=== PATIENT | male | born 1965 | race African-American/Black ===

== ENCOUNTER 2017-12-15 14:26 | Emergency (ER) | payer SELFPAY ==
[~2017-12-15] VITALS: Ht 180.3 cm; Wt 136.5 kg
[~2017-12-15 14:26] MED LIST: Z.0.NO CURRENT MEDS
[2017-12-15 14:34] VITALS: BP 148/75; PULSE 107; RESP 22; TEMP 98.6; O2SAT 98
[2017-12-15] MEDS ORDERED: SODIUM CHLOR 0.9% 1000 ML INJ 1,000 ML IV SCH (16:34)
[2017-12-15 16:41] VITALS: PULSE 102; RESP 18; O2SAT 97
[2017-12-15] MEDS ORDERED: MORPHINE SULFATE 4 MG/ML INJ IV PUSH ONE (16:45)
[2017-12-15] MEDS ORDERED: TETANUS/DIPHTHERIA TOXOID ADULT 0.5 ML VIAL IM ONE (16:45)
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
[2017-12-15 16:51] VITALS: BP 140/80; PULSE 102; RESP 18; O2SAT 98
[2017-12-15 17:14] LABS: AUTOMATED NEUTROPHIL # 5.6 TH/MM3 (1.8-7.7); BASOPHIL % 0.6 % (0.0-2.0); EOSINOPHIL # 0.3 TH/MM3 (0-0.4); EOSINOPHIL % 3.4 % (0.0-4.0); HEMATOCRIT 34.9 % (39.0-51.0); HEMOGLOBIN 11.4 GM/DL (13.0-17.0); LYMPH % 16.4 % (9.0-44.0); LYMPHOCYTE # 1.4 TH/MM3 (1.0-4.8); MEAN CELL VOLUME 84.6 FL (80.0-100.0); MEAN CORPUSCULAR HEMOGLOBIN 27.7 PG (27.0-34.0); MEAN CORPUSCULAR HGB CONC 32.7 % (32.0-36.0); MEAN PLATELET VOLUME 8.4 FL (7.0-11.0); MONO % 13.5 % (0.0-8.0); MONOCYTE # 1.1 TH/MM3 (0-0.9); NEUT % 66.1 % (16.0-70.0); PLATELET COUNT 245 TH/MM3 (150-450); RED BLOOD COUNT 4.12 MIL/MM3 (4.50-5.90); RED CELL DISTRIBUTION WIDTH 16.2 % (11.6-17.2); WHITE BLOOD COUNT 8.4 TH/MM3 (4.0-11.0)
[2017-12-15 17:21] LABS: PROTHROMBIN TIME - PATIENT 10.2 SEC (9.8-11.6)
[2017-12-15] MEDS ORDERED: CLINDAMYCIN INJ 900 MG in SODIUM CHLORIDE 0.9% INJ 100 ML IV ONE (17:30)
[2017-12-15 17:31] LABS: ALBUMIN 2.8 GM/DL (3.4-5.0); AST (GOT) 56 U/L (15-37); BICARBONATE 25.5 MEQ/L (21.0-32.0); BLOOD UREA NITROGEN 14 MG/DL (7-18); CALCIUM 8.6 MG/DL (8.5-10.1); CHLORIDE 105 MEQ/L (98-107); GLOMERULAR FILTRATION RATE 60 ML/MIN (>89); GLUCOSE,RANDOM 98 MG/DL (74-106); SODIUM (NA) 140 MEQ/L (136-145)
[2017-12-15 17:33] LABS: ALT (GPT) 61 U/L (12-78)
[2017-12-15 17:34] LABS: ALKALINE PHOSPHATASE 78 U/L (45-117); TOTAL BILIRUBIN ADULT 0.2 MG/DL (0.2-1.0); TOTAL PROTEIN 7.6 GM/DL (6.4-8.2)
[2017-12-15] MEDS ORDERED: CLINDAMYCIN 900 MG/NS PREMIX 50 ML IV ONE (17:45)
--- NOTE | 2017-12-15 18:06 | RADRPT ---
EXAM DATE/TIME: 12/15/2017 17:31 CORRECTION Corrected on: December 15, 2017; [place] COMPARISON: No previous studies available for comparison. INDICATIONS : Bilateral leg pain. MEDICAL HISTORY : Hypertension. Glasses. Substance use. SURGICAL HISTORY : Appendectomy. ENCOUNTER: Initial ACUITY: 1 day PAIN SCORE: 2/10 LOCATION: Bilateral legs. TECHNIQUE: Venous ultrasound of the left and right leg was performed from the inguinal ligament to the proximal calf. Real-time, color Doppler and spectral tracing, compression and augmentation techniques were us ed. FINDINGS: RIGHT LEG: There is normal compressibility of the deep venous system from the inguinal region to the proximal ca lf. No echogenic clot is seen in the lumen of the common femoral, femoral, popliteal, and posterior tibial veins. There is a normal response of the venous system to proximal and distal augmentation an d respiration. LEFT LEG: There is normal compressibility of the deep venous system from the inguinal region to the proximal ca lf. No echogenic clot is seen in the lumen of the common femoral, femoral, popliteal, and posterior tibial veins. There is a normal response of the venous system to proximal and distal augmentation an d respiration. CONCLUSION: Negative for deep venous thrombosis. Benito Lares MD FACR on December 15, 2017 at 18:03 Board Certified Radiologist. This report was verified electronically. Benito Lares MD FACR on December 15, 2017 at 18:10 Board Certified Radiologist. This report was verified electronically.
[2017-12-15] MEDS ORDERED: CLIN150C14 PO (18:14)
[2017-12-15] MEDS ORDERED: IBUP-232 PO (18:14)
--- NOTE | 2017-12-15 19:22 | PD ---
Physical Exam Date Seen by Provider: Dec 15, 2017 Time Seen by Provider: 18:30 Narrative I, Dr. Serrano patient seen and evaluated with PA, please see PA notes for further details. i, have reviewed the advance practice practitioner's documentation and am in agreement, met with the patient face to face, made the diagnosis, and the medical decision making was done by me. *My assessment and Findings: He is here with bilateral leg pain and swelling, cellulitis versus DVT. He denies any fevers or other issues. He has tenderness on palpation of both legs, notable erythema. The rest of exam was fairly unremarkable. Laboratory Tests Test 12/15/17 16:10 12/15/17 16:50 Red Blood Count 4.12 MIL/MM3 (4.50-5.90) Hemoglobin 11.4 GM/DL (13.0-17.0) Hematocrit 34.9 % (39.0-51.0) Monocytes (%) (Auto) 13.5 % (0.0-8.0) Monocytes # (Auto) 1.1 TH/MM3 (0-0.9) Activated Partial Thromboplast Time 39.4 SEC (24.3-30.1) Creatinine 1.50 MG/DL (0.60-1.30) Albumin 2.8 GM/DL (3.4-5.0) Aspartate Amino Transf (AST/SGOT) 56 U/L (15-37) Estimat Glomerular Filtration Rate 60 ML/MIN (>89) Ultrasound shows no DVT. Lab work was done and did not show significant signs of sepsis. Patient will be started on antibiotics and we will have her follow- up primary care doctor. Return for any worsening in pain, fevers, new symptoms as needed. The plan has been discussed with him and he states understanding. Data Data Last Documented VS Vital Signs Date Time Temp Pulse Resp B/P (MAP) Pulse Ox O2 Delivery O2 Flow Rate FiO2 12/15/17 16:51 102 18 140/80 (100) 98 Room Air 12/15/17 14:34 98.6 Orders Orders Complete Blood Count With Diff (12/15/17 16:34) Blood Culture (12/15/17 16:34) Iv Access Insert/Monitor (12/15/17 16:34) Tetanus/Diphtheria Tox Adult (Tetanus/Di (12/15/17 16:45) Comprehensive Metabolic Panel (12/15/17 16:34) Lactic Acid (12/15/17 16:34) Prothrombin Time / Inr (Pt) (12/15/17 16:34) Act Partial Throm Time (Ptt) (12/15/17 16:34) Ecg Monitoring (12/15/17 16:34) Oximetry (12/15/17 16:34) Morphine Inj (Morphine Inj) (12/15/17 16:45) Sodium Chlor 0.9% 1000 Ml Inj (Ns 1000 M (12/15/17 16:34) Sepsis Workup Initiated (12/15/17 16:34) Us Leg Venous Doppler Bilat (12/15/17 17:17) Clindamycin 900 Mg/Ns Premix (Cleocin 90 (12/15/17 17:45) Ed Discharge Order (12/15/17 18:27) Labs Laboratory Tests Test 12/15/17 16:10 12/15/17 16:50 Lactic Acid Level 1.5 mmol/L White Blood Count 8.4 TH/MM3 Red Blood Count 4.12 MIL/MM3 Hemoglobin 11.4 GM/DL Hematocrit 34.9 % Mean Corpuscular Volume 84.6 FL Mean Corpuscular Hemoglobin 27.7 PG Mean Corpuscular Hemoglobin Concent 32.7 % Red Cell Distribution Width 16.2 % Platelet Count 245 TH/MM3 Mean Platelet Volume 8.4 FL Neutrophils (%) (Auto) 66.1 % Lymphocytes (%) (Auto) 16.4 % Monocytes (%) (Auto) 13.5 % Eosinophils (%) (Auto) 3.4 % Basophils (%) (Auto) 0.6 % Neutrophils # (Auto) 5.6 TH/MM3 Lymphocytes # (Auto) 1.4 TH/MM3 Monocytes # (Auto) 1.1 TH/MM3 Eosinophils # (Auto) 0.3 TH/MM3 Basophils # (Auto) 0.0 TH/MM3 CBC Comment DIFF FINAL Differential Comment Prothrombin Time 10.2 SEC Prothromb Time International Ratio 1.0 RATIO Activated Partial Thromboplast Time 39.4 SEC Blood Urea Nitrogen 14 MG/DL Creatinine 1.50 MG/DL Random Glucose 98 MG/DL Total Protein 7.6 GM/DL Albumin 2.8 GM/DL Calcium Level 8.6 MG/DL Alkaline Phosphatase 78 U/L Aspartate Amino Transf (AST/SGOT) 56 U/L Alanine Aminotransferase (ALT/SGPT) 61 U/L Total Bilirubin 0.2 MG/DL Sodium Level 140 MEQ/L Potassium Level 4.1 MEQ/L Chloride Level 105 MEQ/L Carbon Dioxide Level 25.5 MEQ/L Anion Gap 10 MEQ/L Estimat Glomerular Filtration Rate 60 ML/MIN [facility] Medical Record Reviewed: Yes Supervised Visit with SARATH: Yes Diagnosis Primary Impression: Cellulitis of both lower extremities Referrals: [facility] Patient Instructions: General Instructions, Cellulitis (ED) Departure Forms: Tests/Procedures Additional Instruction: Rest, hydrate. Elevate your legs as possible. Begin antibiotics today and take them until every dose is gone. Follow-up with the [facility] for further evaluation. Return to the ED for worsening symptoms or any urgent or emergent medical condition. Scripts Ibuprofen (Ibuprofen) 600 Mg Tab 600 MG PO Q8HR Y for PAIN, #15 TAB 0 Refills Prov: Hafsa Yen MD 12/15/17 Clindamycin (Clindamycin) 150 Mg Cap 450 MG PO Q6H for Infection for 7 Days, #84 CAP 0 Refills Prov: Hafsa Yen MD 12/15/17 Disposition: 01 DISCHARGE HOME Condition: Stable Hafsa Yen MD Dec 15, 2017 19:22
== END 2017-12-15 21:21 | disposition home or self-care (01) ==
LOC: NEPE 14:26 → NEDAMB 21:21
DX: L03.115 Cellulitis of right lower limb (principal); L03.116 Cellulitis of left lower limb; S80.812A Abrasion, left lower leg, initial encounter; S80.811A Abrasion, right lower leg, initial encounter; X58.XXXA Exposure to other specified factors, initial encounter; T20.12XA Burn of first degree of lip(s), initial encounter; X19.XXXA Contact with other heat and hot substances, initial encounter; I10 Essential (primary) hypertension; Z23 Encounter for immunization
CPT/HCPCS: 80053; 83605; 85025; 85610; 85730; 87040; 90471; 90714; 93970; 96361; 96365; 96375; 99284; J2270; J7030